=== PATIENT | male | born 1990 | race Caucasian/White ===

== ENCOUNTER 2024-02-23 09:30 | Emergency (ER) | payer OTHER, SELFPAY ==
[2024-02-23] MEDS ORDERED: Boostrix 0.5 ML (Tdap) VIAL (>/=7 yrs of age) ONE (10:07)
== END 2024-02-23 10:18 | disposition home or self-care (01) ==
LOC: NAV ERS 09:30
DX: S61.512A Laceration without foreign body of left wrist, initial encounter (principal); F17.210 Nicotine dependence, cigarettes, uncomplicated; W26.8XXA Contact with other sharp object(s), not elsewhere classified, initial encounter; Z23 Encounter for immunization
CPT/HCPCS: 12001; 90471; 90715